=== PATIENT | male | born 1955 | race Hispanic/Latino ===

== ENCOUNTER 2016-09-28 22:59 | Inpatient (IN) ==
--- NOTE | 2016-09-28 23:21 | PROVIDER DOCUMENTATION ---
HPI-Neurological Disorder - General Chief Complaint: Stroke-Like Symptoms Stated Complaint: HEADACHE/ HX CVA Time Seen by Provider: 09/28/16 23:11 Source: patient Allergies/Adverse Reactions: Patient Allergies Allergy/AdvReac Type Severity Reaction Status Date / Time No Known Allergies Allergy Verified 09/29/16 00:09 Home Medications: Home Medication List Medication Instructions Recorded Confirmed Last Taken Type Metformin [Glucophage] 2 tab PO BID 09/29/16 09/29/16 09/29/16 History - History of Present Illness-Neuro Nature of Presenting Problem: Pt is a 60 y/o M c chief complaint of L sided facial droop and tingling sensation to R face x 12 hrs. Pt states symptoms started this morning at approximately 11am and he went to work at the [employer]. 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 Pt denies any pain or loss of sensation /motor to extremities. Pt's family came with him to the ER and stated 2 years ago he had a massive stroke and was admitted to the hospital in [place] for 8 days. Pt underwent rehab for months. Pt's daughter states that last week he had R facial droop but it resolved. Today he had slurred speech and difficulty chewing his food this morning. On arrival, pt is in minimal distress, alert, oriented. He is a poor historian. Review of Systems - Adult - REVIEW OF SYSTEMS - ADULT Constitutional: reports: no symptoms reported. denies: chills, fatique Eyes: reports: no symptoms reported. denies: blurred vision, double vision Ears, Nose, Mouth & Throat: reports: no symptoms reported. denies: ear pain, nose pain, throat pain Cardiovascular: reports: no symptoms reported. denies: chest pain, orthopnea Respiratory: reports: no symptoms reported. denies: cough, shortness of breath Gastrointestinal: reports: no symptoms reported. denies: abdominal pain, nausea Genitourinary: reports: no symptoms reported. denies: dysuria, hematuria Musculoskeletal: reports: no symptoms reported. denies: joint pain, joint swelling Integumentary: reports: no symptoms reported. denies: itching, rash Neurological: reports: slurred speech, other (facial droop). denies: numbness, paresthesia Psychiatric: reports: no symptoms reported. denies: anxiety, emotional problems Endocrine: reports: no symptoms reported. denies: cold intolerance, heat intolerance Hematologic/Lymphatic: reports: no symptoms reported. denies: blood clots, low blood count Allergic/Immunologic: reports: no symptoms reported. denies: allergic reactions , food allergy All Other Systems: Reviewed and Negative Past History - Adult - PAST MEDICAL HISTORY-ADULT Review of Records: reports: Old Records Reviewed, Nursing Assessment Review, Medications Reviewed, Social history reviewed & non-contributory. Major Childhood Illnesses: reports: denies history Cardiovascular: reports: HTN, hyperlipidemia Respiratory: reports: denies history Gastrointestinal: reports: denies history Obstetrical/Gynecological: reports: denies history Genitourinary: reports: denies history Musculoskeletal: reports: denies history Neurological: reports: CVA, stroke deficits, TIA Endocrine/Immune: reports: denies history Other Conditions: reports: denies history - PRIOR SURGERIES/PROCEDURES Surgical/Procedure History: reports: none - IMMUNIZATION STATUS Childhood Immunizations: See Nurse Assessment Flu Vaccine: See Nurse Assessment - FAMILY HISTORY Family History: reviewed, not pertinent - SOCIAL HISTORY Smoking: denies Substance Use: none/never Alcohol Use Frequency: never Living Situation: family Physical Exam- Neurological - Physical Exam-Neuro Initial Vital Signs Reviewed: Yes General Appearance: appears well, alert, no apparent distress Eye Exam: bilateral eye: normal inspection, PERRL, EOMI HENMT: normocephalic/atraumatic, moist mucous membranes, normal ENT inspection Head Injury: no evidence of injury Neck: non-tender, full range of motion, supple Respiratory: chest non-tender, lungs clear, normal breath sounds Cardiovascular: normal peripheral pulses, regular rate, rhythm, no edema Abdominal Exam: normal bowel sounds, non tender, soft Extremity: normal range of motion, non-tender, normal gait air boatswain Exam: normal hearing, PERRL, abnormal speech (mildly slurred), facial asymmetry (L sided), facial droop (L sided) Motor/Sensory: no motor deficit, no sensory deficit, no pronator drift Neurologic: air boatswain II-XII nml as tested, no motor/sensory deficits Integumentary: normal color, normal turgor, warm/dry Psych/Mental Status: normal mood/affect - Glascow Coma Scale Best Eye Response: (4) open spontaneously Best Verbal Response: (5) oriented Best Motor Response: (6) obeys commands Progress - PLAN OF CARE/RESULTS Progress/Plan/Lab Results: Vital Signs - 8 hr 09/28/16 23:20 09/29/16 01:58 Temperature 97.9 F Pulse Rate 65 71 Respiratory Rate 18 12 Blood Pressure 180/87 152/96 O2 Sat by Pulse Oximetry 100 99 Laboratory Results - last 24 hr 09/28/16 09/28/16 09/28/16 01:02 23:11 23:46 WBC RBC Hgb Hct MCV MCH MCHC RDW Std Deviation Plt Count MPV Immature Gran % (Auto) Neut % (Auto) Lymph % (Auto) [place] % (Auto) Eos % (Auto) Baso % (Auto) Immature Gran # (Auto) Neut # (Auto) Lymph # (Auto) [place] # (Auto) Eos # (Auto) Baso # (Auto) PT INR PTT (Actin FS) Specimen Type ARTERIAL Sample Site R RADIAL pH 7.46 H pCO2 34 L pO2 95 HCO3 25.5 Base Excess 0.8 Oxyhemoglobin 96.8 ABG O2 Sat (Calculated) 17.5 ABG O2 Saturation 100.7 H ABG Carboxyhemoglobin 2.50 ABG Methemoglobin 1.5 Mac Test YES A-a O2 Difference 12.0 Total Hemoglobin 12.8 Lactate 1.50 Blood Gas Modality ROOM AIR FiO2 % 21.0 Sodium Potassium Chloride Carbon Dioxide Anion Gap BUN Creatinine Estimated GFR/1.73 m2 BUN/Creatinine Ratio Glucose Calculated Osmolality Calcium Total Bilirubin AST ALT Alkaline Phosphatase Creatine Kinase Troponin T Total Protein Albumin Globulin Albumin/Globulin Ratio Plasma Lactate 0.9 Urine Source Urine Color Urine Turbidity Urine pH Ur Specific [place] Urine Protein Ur Glucose (Stick) Ur Ketones (Stick) Urine Blood Urine Nitrite Urine Bilirubin Urobilinogen Dipstick Urine Leukocytes Urine WBC (Auto) Urine RBC (Auto) U Epithel Cells (Auto) Urine Bacteria (Auto) Plasma/Serum Ethyl Alc 09/28/16 09/28/16 09/28/16 23:46 23:46 23:46 WBC 5.49 RBC 4.35 L Hgb 13.5 L Hct 37.8 L MCV 86.9 MCH 31.0 MCHC 35.7 RDW Std Deviation 11.7 Plt Count 178 MPV 10.1 Immature Gran % (Auto) 0.4 Neut % (Auto) 50.6 Lymph % (Auto) 24.8 [place] % (Auto) 8.6 Eos % (Auto) 14.9 H Baso % (Auto) 0.7 Immature Gran # (Auto) 0.02 Neut # (Auto) 2.78 Lymph # (Auto) 1.36 [place] # (Auto) 0.47 Eos # (Auto) 0.82 H Baso # (Auto) 0.04 PT 11.1 INR 1.05 PTT (Actin FS) 25.9 Specimen Type Sample Site pH pCO2 pO2 HCO3 Base Excess Oxyhemoglobin ABG O2 Sat (Calculated) ABG O2 Saturation ABG Carboxyhemoglobin ABG Methemoglobin Mac Test A-a O2 Difference Total Hemoglobin Lactate Blood Gas Modality FiO2 % Sodium 138 Potassium 3.6 Chloride 101 Carbon Dioxide 23 L Anion Gap 14 BUN 16 Creatinine 1.0 Estimated GFR/1.73 m2 > 60 BUN/Creatinine Ratio 16 Glucose 171 H Calculated Osmolality 281 Calcium 8.7 L Total Bilirubin 0.22 AST 14 ALT 13 Alkaline Phosphatase 70 Creatine Kinase 105 Troponin T Total Protein 6.7 Albumin 3.7 Globulin 3.0 Albumin/Globulin Ratio 1.2 Plasma Lactate Urine Source Urine Color Urine Turbidity Urine pH Ur Specific [place] Urine Protein Ur Glucose (Stick) Ur Ketones (Stick) Urine Blood Urine Nitrite Urine Bilirubin Urobilinogen Dipstick Urine Leukocytes Urine WBC (Auto) Urine RBC (Auto) U Epithel Cells (Auto) Urine Bacteria (Auto) Plasma/Serum Ethyl Alc 09/28/16 09/29/16 23:46 00:08 WBC RBC Hgb Hct MCV MCH MCHC RDW Std Deviation Plt Count MPV Immature Gran % (Auto) Neut % (Auto) Lymph % (Auto) [place] % (Auto) Eos % (Auto) Baso % (Auto) Immature Gran # (Auto) Neut # (Auto) Lymph # (Auto) [place] # (Auto) Eos # (Auto) Baso # (Auto) PT INR PTT (Actin FS) Specimen Type Sample Site pH pCO2 pO2 HCO3 Base Excess Oxyhemoglobin ABG O2 Sat (Calculated) ABG O2 Saturation ABG Carboxyhemoglobin ABG Methemoglobin Mac Test A-a O2 Difference Total Hemoglobin Lactate Blood Gas Modality FiO2 % Sodium Potassium Chloride Carbon Dioxide Anion Gap BUN Creatinine Estimated GFR/1.73 m2 BUN/Creatinine Ratio Glucose Calculated Osmolality Calcium Total Bilirubin AST ALT Alkaline Phosphatase Creatine Kinase Troponin T < 0.010 Total Protein Albumin Globulin Albumin/Globulin Ratio Plasma Lactate Urine Source CLEAN CATCH Urine Color STRAW Urine Turbidity CLEAR Urine pH 5.5 Ur Specific [place] 1.006 Urine Protein NEGATIVE Ur Glucose (Stick) 200 A Ur Ketones (Stick) NEGATIVE Urine Blood NEGATIVE Urine Nitrite NEGATIVE Urine Bilirubin NEGATIVE Urobilinogen Dipstick NORMAL Urine Leukocytes NEGATIVE Urine WBC (Auto) <10 Urine RBC (Auto) <10 U Epithel Cells (Auto) <10 Urine Bacteria (Auto) NEGATIVE Plasma/Serum Ethyl Alc Orders Category Date Time Status Cardiac Monitoring DIRECTED Care 09/28/16 23:11 Active Finger Stick Blood Sugar (ED) DIRECTED Care 09/28/16 23:11 Active Oxygen Therapy- ED Nursing DIRECTED Care 09/28/16 23:11 Active Saline Loc NOW Care 09/28/16 23:11 Active CHEST-PORTABLE [RAD] Stat Exams 09/28/16 23:11 Taken HEAD W/O CONTRAST [CT] Stat Exams 09/28/16 23:12 Taken ABG [RESP] Routine Lab 09/28/16 23:11 Completed ALCOHOL BLOOD Stat Lab 09/28/16 23:46 Completed CBC WITH ELECTRONIC DIFF [HEME] Stat Lab 09/28/16 23:46 Completed CK PROFILE [SP CHEM] Stat Lab 09/28/16 23:46 Completed COMPREHENSIVE METABOLIC PANEL [CHEM] Stat Lab 09/28/16 23:46 Completed LACTATE, PLASMA [CHEM] Stat Lab 09/28/16 01:02 Completed PROTIME WITH INR [COAG] Stat Lab 09/28/16 23:46 Completed PTT [COAG] Stat Lab 09/28/16 23:46 Completed TROPONIN T Stat Lab 09/28/16 23:46 Completed URINALYSIS W/POSS RFLX CULT-1 [URINALYSIS] Stat Lab 09/29/16 00:08 Completed URINE DRUG SCREEN Stat Lab 09/29/16 00:08 Received 0.9% Sodium Chloride Inj [Ns] 1,000 ml Med 09/29/16 00:36 Discontinued .ROUTE As Directed Aspirin Med 09/29/16 00:17 Discontinued 325 mg PO NOW ONE Pulse Oximetry Stat Oth 09/28/16 23:11 Active EKG [EKG] Stat Ther 09/28/16 23:11 Ordered Result Diagrams: 09/28/16 23:46 09/28/16 23:46 - XRAY 1 XRAY Study: Chest Impression: Normal XRAY Interpretation: nad - CT/MRI 1 CT Study: Head Impression: Normal (No acute hemorrhage or definite acute infarct - radiology) - CONSULTS/PCP/HOSPITALIST Notification #1 *Consult/PCP/Hospitalist*: Dr. Bucio (Hospitalist) Time Discussed: 02:18 Reason/Comments: Will see pt in the ER and admit to the hospital. Departure - Departure Time of Disposition Decision: 02:19 DIAGNOSIS: Stroke-like symptoms Disposition: ADMITTED INPATIENT 09 Certified Medical Emergency: Emergent Condition: Stable Referrals and Follow-Ups: Emil Holly MD [Primary Care Provider] - Attestation - Physician/ [place] Attestation Patient care was provided by Advanced Practice Provider:: Yes Advanced Practice Provider:: Alan Rubio Advanced Practice Provider documentation review:: The Mid-level provider documentation, treatment plan and medical decision making was reviewed by the physician who agrees with all treatment and medical decision making by the MLP. The physician spent face to face time with patient:: Yes Advanced Practice Provider documentation review:: The physician spent face to face time with this patient and agrees with all MLP documentation, treatment, and medical decision making by the MLP. See provider notes for further information. - NIH Stroke Scale NIH Type: Initial Evaluation Level of Consciousness: 0-Alert LOC Questions (ask month and age): 0-Answers Both Correctly LOC Commands (ask to open & close eyes;make a fist, let go): 0-Obeys Both Correctly Best Gaze (horizontal eye movement): 0-Normal Visual (use finger movement, counting or visual threat): 0-No Visual Loss Facial Palsy (show teeth or raise eyebrows & close eyes tght: 1-Minor Paralysis Motor Function-left arm: 0-Normal Motor Function-right arm: 0-Normal Motor Function-left le-Normal Motor Function-right le-Normal Limb Ataxia([id number], or heel to donnelly): 0-No Ataxia Sensory(pin prick to face,arms,trunk,legs-compare side/side): 1-Mild to Moderate Decrease in Sensation Best Language(name item/read sentence.Ex-Down to Earth): 0-No Aphasia Dysarthria(Pt read words or say words Ex.Mama,Tip-Top,Thanks: 0-Normal Articulation Extinction and Inattention: 0-Normal Modified [place] Score Criteria: 0-no symptoms Stroke tPA Guidelines - Inclusion Criteria for IV tPA Onset <3 hours ago *OR* 3-4.5 hours ago: No
[2016-09-28 23:39] LABS: ALLEN TEST YES; BE 0.8 mmoll (-3.0-3.0); BLOOD TYPE ARTERIAL; DRAW SITE R RADIAL; METHB 1.5 % (0.0-1.5); O2(CT) 17.5 mL/dL (15.0-23.0); PCO2(98.6) 34 mmHg (35-45); PO2(98.6) 95 mmHg (60-100); SAMPLE BLOOD; SAO2 100.7 % (95.0-100.0); THB 12.8 g/dL (11.5-17.4); pH(98.6) 7.46 (7.35-7.45)
[2016-09-28 23:41] LABS: MODALITY ROOM AIR
[2016-09-28 23:57] LABS: MANUAL DIFF NEEDED? NO
[2016-09-29] MEDS ORDERED: ASPIRIN PO ONE (00:17)
[2016-09-29 00:32] LABS: BASO% 0.7 % (0.0-0.8); EOS# 0.82 X1000 (0.0-0.7); EOS% 14.9 % (0.0-10.0); HEMATOCRIT 37.8 % (42.0-52.0); HEMOGLOBIN 13.5 g/dL (14.0-18.0); IMM GRAN# 0.02 X1000 (0.0-0.04); IMM GRAN% 0.4 % (0.0-0.5); LYMPH# 1.36 X1000 (1.2-3.4); LYMPH% 24.8 % (20.5-51.1); MCHC 35.7 g/dL (33-37); MCV 86.9 FL (81-99); MONO# 0.47 X1000 (0.11-0.59); MONO% 8.6 % (1.7-9.3); MPV 10.1 FL (7.4-10.4); NEUT% 50.6 % (42.2-75.2); PLT 178 X1000 (130-400); RBC 4.35 XMIL (4.7-6.1)
[2016-09-29 00:33] LABS: URINE CULTURE NEEDED? NO; URINE MICRO REVIEW NEEDED? NO; URINE SOURCE CLEAN CATCH
[2016-09-29] MEDS ORDERED: NS 2,000 ML ONE (00:36)
[2016-09-29 00:42] LABS: INR 1.05; PROTIME 11.1 Seconds (9.2-11.7); PTT 25.9 Seconds (22.0-36.0)
[2016-09-29 00:44] LABS: AGAP 14; ALBUMIN 3.7 g/dL (3.5-5.0); ALKALINE PHOSPHATASE 70 U/L (32-122); BUN 16 mg/dL (8-22); CALCIUM 8.7 mg/dL (8.8-10.2); CHLORIDE 101 mmol/L (98-107); CK PROFILE 105 U/L (24-204); COSMO 281; GOT 14 U/L (10-34); GPT 13 U/L (10-44); POTASSIUM 3.6 mmol/L (3.5-5.1); SODIUM 138 mmol/L (136-145); TCO2 23 mmol/L (25-35); TOTAL BILIRUBIN 0.22 mg/dL (0.20-1.00); TOTAL PROTEIN 6.7 g/dL (6.3-8.3)
[2016-09-29 00:50] LABS: BILIRUBIN URINE NEGATIVE (NEGATIVE); BLOOD URINE NEGATIVE (NEGATIVE); COLOR STRAW; GLUCOSE URINE 200 mg/dL (NEGATIVE); LEUKOCYTES URINE NEGATIVE (NEGATIVE); NITRITE URINE NEGATIVE (NEGATIVE); PH URINE 5.5; PROTEIN URINE NEGATIVE (NEGATIVE); SP GRAVITY URINE 1.006; TURBIDITY URINE CLEAR (CLEAR); UR EPITHELIAL CELLS <10 /HPF (<10); URINE BACTERIA NEGATIVE /HPF; URINE RBC <10 /HPF (<10); URINE WBC <10 /HPF (<10); UROBILINOGEN URINE NORMAL (NORMAL)
[2016-09-29 02:27] LABS: UR AMPHETAMINES QUAL NONE DETECTED (NONE DETECT); UR BARBITUATES QUAL NONE DETECTED (NONE DETECT); UR BENZODIAZEPIN QUAL NONE DETECTED (NONE DETECT); UR CANNABINOIDS QUAL NONE DETECTED (NONE DETECT); UR COCAINE QUAL NONE DETECTED (NONE DETECT); UR METHADONE QUAL NONE DETECTED (NONE DETECT); UR OPIATES QUAL NONE DETECTED (NONE DETECT); UR OXYCODONE QUAL NONE DETECTED (NONE DETECT); UR PCP QUAL NONE DETECTED (NONE DETECT)
[2016-09-29] MEDS ORDERED: LIPITOR PO ONE (02:50)
[2016-09-29] MEDS ORDERED: ZOFRAN IV PRN (02:50)
[2016-09-29] MEDS ORDERED: TYLENOL PO PRN (02:50)
[2016-09-29 03:14] LABS: HEMOGLOBIN A1C 7.5 % (4.8-6.0)
[2016-09-29] MEDS: LIPITOR PO SCH ×2 (03:16→20:38)
[2016-09-29] MEDS: LOVENOX SUBQ SCH (03:16)
[2016-09-29] MEDS: NS 1,000 ML IV SCH ×2 (03:16→14:07)
--- NOTE | 2016-09-29 03:20 | HISTORY AND PHYSICAL ---
REASON FOR ADMISSION: Left-sided facial droop today. PRIMARY CARE PHYSICIAN: Dr. Emil Holly. HISTORY OF PRESENT ILLNESS: Mr. Quoc Hardin is a 58-year-old male with a past medical history of type 2 diabetes and hyperlipidemia. He has a prior history of a CVA in 1-2 years ago in [place] where [place] from. He had to undergo extended PT, OT, and speech therapy to recover to a functional level. The patient reports that the day before yesterday, he had a headache in the back of his head. His noticed that he felt so spaced out and was confused for several minutes. Thereafter, he came back to himself. Yesterday at about 11 a.m., the patient reports that he had right eye twitching and could not see very clearly out of his right eye. After several minutes, he felt better and went to work. At about 10 p.m., almost 12 hours later, his colleagues noticed the left side of his face was drooping and his eyes were sagging. They were concerned and told him to come to the ER. On arrival, he underwent a CT scan without contrast. No acute pathology was noted. The patient himself denies any focal weakness, numbness, tingling of his extremities. No visual problems as of this time. His colleagues at work did tell him that his speech was slurred but he does not think so. His is at bedside. She thinks it is slightly slurred. The patient denies any palpitations, chest pain, or any cardiorespiratory symptoms throughout today. No GI or complaints. No polyuria, polydipsia, or polyphagia. No skin or musculoskeletal complaints. No change in his home medications. REVIEW OF SYSTEMS: Twelve system review was done. No positive findings were noted except for what is noted above. The patient denies any antecedent history of loss of consciousness prior to today. MEDICATIONS: Metformin 500 mg b.i.d. FAMILY HISTORY: He states that other than diabetes, no heart disease or strokes. ALLERGIES: No known allergies. PERSONAL SOCIAL HISTORY: Maybe 2 beers over the weekend. No smoking history. He is . PAST SURGICAL HISTORY: Nil. LABORATORY WORK: White count 5000, hemoglobin and hematocrit 13 and 37, platelets 178,000. Glucose 171. Troponin is negative. Lactate normal. EKG yet to be reviewed by me. PT and PTT are normal. UDS is negative. Alcohol level is normal. Urinalysis clean. Blood gas 7.46, pCO2 34, O2 95 on room air. Chest x-ray was clear. PHYSICAL EXAMINATION: VITAL SIGNS: Blood pressure 152/96, heart rate 71, respirations 12, temperature is 97.9, and 99% on room air. GENERAL: He is a pleasant, middle-aged, Serbian man who is alert and oriented to person, place, and time. HEENT: Head is normocephalic, atraumatic. Cranial nerves: The patient has left lower motor neuron cranial nerve palsy. He also showed some very subtle weakness of the right rectus muscle. Pupils are reactive to light. Anicteric and not pale. Otherwise, the rest of his cranial nerve exam is normal. No pronator drift. Power is 5/5 in the lower extremities. No tremors. No evidence of truncal ataxia or extremity ataxia. Neck supple. No JVD or carotid bruit. No thyromegaly. ENT and oropharynx exam is grossly normal. No central cyanosis. CHEST: Clear to auscultation. Good air entry in both lung soriano. CARDIOVASCULAR: First and second heart sounds heard. No gallops, rubs. Rhythm is regular. ABDOMEN: Slightly protuberant, soft, nontender. No mass or organomegaly. Bowel sounds normal. RECTAL: Examination deferred at this time. EXTREMITIES: No edema, clubbing, or peripheral cyanosis. Pulses distally intact with good volume and symmetrical. NEUROLOGICAL EXAMINATION: See above. SKIN: Intact with no breakdown, lesions, or erythema. Physical examination is grossly normal. ASSESSMENT: 1. Probable brainstem lacunar stroke. 2. Type 2 diabetes. 3. Hyperlipidemia. 4. Hypertension. PLAN: Consult neurology to see the patient later today in the a.m. MRI without contrast will be ordered. Echocardiogram and carotid Dopplers will also be ordered. Continue with aspirin. Start on high-dose statin. Check the patient's A1c, lipid panel, and adjust home medications accordingly. Because of the patient's habitus, it will be prudent to at least offer him a sleep study to see if this is a possible risk factor for his stroke. Neurologic checks will be checked every 4 hours. DVT prophylaxis with Lovenox. IV fluids will be continued over the course of the day to maintain blood pressure so as to decrease the risk of extension of patient's penumbra if his blood pressure should drop. cc: Dewayne Bucio MD
--- NOTE | 2016-09-29 08:23 | Diag Imaging Result Document ---
PROCEDURE NAME: HEAD W/O CONTRAST - 09/28/2016 CT OF THE HEAD WITHOUT CONTRAST: FINDINGS: There are patchy periventricular white matter lucencies bilaterally. The visualized paranasal sinuses are clear. The calvarium is intact. IMPRESSION: Mild chronic microvascular white matter change. No evidence of acute disease.
--- NOTE | 2016-09-29 08:25 | Diag Imaging Result Document ---
PROCEDURE NAME: CHEST-PORTABLE - 09/28/2016 SINGLE FRONTAL RADIOGRAPH OF THE CHEST: COMPARISON: None available. FINDINGS: The lungs are grossly clear. There is no discrete pleural fluid collection or evidence of pneumothorax. The cardiomediastinal silhouette and upper airway are grossly unremarkable. IMPRESSION: No evidence of acute chest pathology.
[2016-09-29] MEDS: ASPIRIN PO SCH (12:47)
[2016-09-29] MEDS: GLUCOPHAGE PO SCH ×2 (12:48→20:38)
--- NOTE | 2016-09-29 14:01 | Diag Imaging Result Document ---
PROCEDURE NAME: MRI BRAIN W/O CONTRAST - 09/29/2016 MRI BRAIN WITHOUT: FINDINGS: Axial, sagittal, and coronal images obtained in multiple sequences. No recent infarct. There are scattered areas of increased signal on the T2 FLAIR weighted and fast spin echo T2 images. There are in the deep white matter primarily in the parietal lobes. No distinct mass or midline shift. No epidural or subdural fluid collection. No hydrocephalus. No sinus opacification. IMPRESSION: 1. No recent infarct. 2. Multiple small areas of increased signal in the deep white matter which are nonspecific but may simply represent moderate to prominent microvascular ischemic changes. [facility]
--- NOTE | 2016-09-29 15:00 | CONSULTATION ---
DATE OF CONSULTATION: 09/29/2016 Mr. Hardin reports being told by coworkers yesterday that he had a crooked face. He reports he was not personally aware of that. He did eventually look in the mirror and noticed left side of his face was drooped. He believes someone at work told him speech was slurred but he did not personally notice slurred speech. There was never significant headache, but he does note mild left periauricular discomfort today. There was no altered awareness, altered consciousness, memory gap. He did not have any gait difficulty. He did not notice focal weakness in the limbs. He has past history of diabetes mellitus and he was taking metformin regularly. He reports he has not had high blood pressure or other medical problems. He reports being told that he had "stroke" a few years ago and he is not certain what deficit or symptoms were present with that. He recalls having some sharp left-sided chest pain around that time. He might have had a little bit of headache around that time. He specifically denies facial asymmetry and a focal neurologic deficit associated with that previous event. History in the chart indicates he had physical therapy, occupational therapy, speech therapy after that event and he recovered. That makes me suspicious that this might have in fact been true cerebral infarction but Mr. Hardin provides history today that there was no focal neurologic deficit. Workup here includes noncontrast CT of the head reported unremarkable. He has had mildly elevated blood sugars. Nothing else remarkable on lab. Systolic blood pressures ranged 130s to 180s. Heart rate has ranged 60s to 70s. He has been afebrile. PHYSICAL EXAMINATION: On exam now, he is awake, alert, attentive and appropriate. Speech is not dysarthric. Language function is intact. Memory is good. Head and neck are unremarkable. Visual soriano are full, tested grossly by confrontational finger counting. Extraocular movements are full. Facial sensation is intact to pinprick and light touch testing. He has a lower motor neuron pattern of left-sided facial weakness. Left eye closes completely with squinting but not without vigorous squinting. Gag is intact. Palate is midline. Tongue is midline. Shoulder shrug is good bilaterally. Strength is normal in the arms and legs. He did well on finger-to- nose testing bilaterally. He reports equal pinprick appreciation over the hands and feet. I did not test his gait. 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 He has risk factors for cerebrovascular ischemic problems. I am not certain about the possible previous stroke history. Negative CT is reassuring. He has carotid ultrasound, echocardiogram, brain MRA ordered. In light of his risk factors, I think it would be reasonable to also do brain MRI for completeness. We might recommend he continue daily aspirin which he was not taking before. He might need some attention to blood pressure. Further plans will depend on imaging results and on his clinical course. Thanks for asking me to see Mr. Hardin. cc: MD AYANNA Rob III
--- NOTE | 2016-09-29 15:52 | PROGRESS NOTE ---
DATE: 09/29/2016 This 58-year-old presented with left-sided facial droop. A 58-year-old male. PAST MEDICAL HISTORY: Diabetes mellitus type 2, hyperlipidemia, prior history of CVA 1-2 years ago in [place] where he is from. He did go undergo extended PT and OT and speech therapy and recovered functional level. The patient reports that the day before he came in, the day before yesterday he had a headache in the back of his head. noticed he felt so space out, he was confused for several minutes. Thereafter he came back to himself. Yesterday about 11 a.m. he reports that his right eye started twitching. Could not see very clearly out of the right eye. After several minutes he felt better and went to work. About 10 p.m., almost 12 hours later his colleagues noticed the left side of his face was drooping, eyes were sagging and they were concerned. They told him to come to the emergency room. On arrival, he got a CT with contrast. No acute pathology was noted. The patient himself denies any focal weakness, numbness, tingling in the extremities. No visual problems at the time. His colleagues at work could tell that his speech was slurred but he did not think so. His was at the bedside. She thinks it was slurred. The patient denies any palpitations, chest pain, or cardiorespiratory symptoms throughout the day. No GI or complaints. He is on metformin. At the present time they said that he felt like his right face was a little droop and there was slurred speech and his right eye was twitching. No trouble in his arms or legs and he had a little trouble with his vision in his right eye yesterday. Now that is better now. Now his left side of his face is drooping and his left periocular muscles are weak. He is afebrile. Temp is , pulse 18, respirations 134/79. Pupils are equal, round, reactive to light, and accommodation. Oral and nasal mucosa unremarkable. Conjunctivae pink. Sclerae clear.Lungs: Clear in all lung soriano. Cardiovascular: Regular rhythm and rate without murmur or S3. Abdomen: Soft. Skin: Is warm and dry. He has left facial drooping. He has a left periocular weakness as well as having a hard time closing his left eye. 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 Concerned that it was right side before. His CT of his head done yesterday was unremarkable. He has apparently had a CVA before. I think that it would benefit us to get an MRI and I think that has been ordered. Await on the results and I will discuss with Dr. Rucker. At present time he is on aspirin. He is on metformin 1000 mg b.i.d. He is getting normal saline at 150 mL an hour and blood pressures look appropriate. cc: Mac Del Cid MD
[2016-09-29] MEDS: PREDNISONE PO SCH (21:35)
--- NOTE | 2016-09-29 21:36 | Carotid Study ---
DATE: 09/29/2016 PROCEDURE: Bilateral duplex and color flow imaging of the carotid arteries was performed using the GE Vivid E9 ultrasound system with a 9LD transducer. REFERRING PHYSICIAN: Dewayne Bucio MD INTERPRETING PHYSICIAN: DUNCAN: Lois. INDICATIONS: CVA with left facial droop, headache, and altered mental status. OBSERVED DATA RIGHT LEFT Brachial Blood Pressure Carotid Pulse Bruits: Carotid/Sub DIAGRAM OF ULTRASOUND IMAGING R L RIGHT INT EXT INT EXT LEFT Shekhar (cm/s) Shekhar (cm/s) Subclavian 83/0 Subclavian 144/0 CCA Proximal 73/10 CCA Proximal 91/10 CCA Distal 60/12 CCA Distal 74/15 Bulb 49/16 Bulb 52/13 ICA Proximal 43/12 ICA Proximal 44/9 ICA Mid 60/18 ICA Mid 73/17 ICA Distal 103/34 ICA Distal 69/22 ECA 70/7 ECA 74/5 Vertebral 56/15, antegrade flow Vertebral 58/13, antegrade flow ICA/CCA Ratio 1.41 ICA/CCA Ratio 0.79 % Stenosis 0-39%, most likely closely to 39% % Stenosis 0-39% FINDINGS: Some atherosclerosis noted to bilateral carotid arteries. The right internal carotid artery is very tortuous which may limit the interpretive validity of this study at this time by strict velocity criteria. There is no hemodynamically significant flow-limiting stenosis on the right side. The patient is approaching moderate stenosis but currently is at 0-39%, although closer to the 39% range. The patient's left side is 0-39%. Both vertebral arteries are antegrade flow. PHYSICIAN INTERPRETATION: By strict velocity criteria, no hemodynamically significant flow- limiting stenosis noted to bilateral carotid arteries. The right side is 0-39%, likely closer to the 39% range. The left is 0-39%. Both vertebral arteries are antegrade flow. cc: MD Dewayne Mcintosh MD
--- NOTE | 2016-09-29 21:52 | ECHO REPORT ---
ORDER DATE: 09/29/2016 MEASUREMENTS: Left ventricular end-diastolic diameter 5.7, systolic diameter 3.4. Posterior wall thickness 0.9, septal thickness 1.0, left atrium 3.5, aortic root 3.6. SUMMARY: 1. Adequate quality of study. 2. Aortic, mitral, tricuspid, and pulmonic valves are without structural abnormality, with trace mitral regurgitation and trace tricuspid regurgitation. Estimated systolic PA pressure by Doppler is 35 mmHg. The aortic root is normal in size. 3. Normal left ventricular dimensions demonstrated. Estimated left ventricular ejection fraction 65%. No regional wall motion abnormalities are evident. Left atrium, right atrium, and right ventricle are normal in size, with normal right ventricular systolic function. 4. No pericardial effusion. 5. Appearance of inferior vena cava suggests normal central venous pressure. CONCLUSIONS: 1. No significant valve abnormalities. 2. Estimated systolic PA pressure by Doppler 30-35 mmHg. 3. Estimated left ventricular ejection fraction 65%. cc: MD Dewayne Riggins MD
[2016-09-30] MEDS: LOVENOX SUBQ SCH (02:52)
[2016-09-30 06:36] LABS: MANUAL DIFF NEEDED? NO
[2016-09-30 06:51] LABS: BASO% 0.3 % (0.0-0.8); EOS# 0.05 X1000 (0.0-0.7); EOS% 0.8 % (0.0-10.0); HEMATOCRIT 38.4 % (42.0-52.0); HEMOGLOBIN 13.5 g/dL (14.0-18.0); LYMPH# 0.96 X1000 (1.2-3.4); LYMPH% 14.8 % (20.5-51.1); MCH 30.7 PG (27-31); MCHC 35.2 g/dL (33-37); MCV 87.3 FL (81-99); MONO# 0.25 X1000 (0.11-0.59); MONO% 3.9 % (1.7-9.3); MPV 10.5 FL (7.4-10.4); NEUT% 80.2 % (42.2-75.2); PLT 184 X1000 (130-400)
[2016-09-30 07:15] LABS: AGAP 15; BUN 14 mg/dL (8-22); CALCIUM 9.1 mg/dL (8.8-10.2); CHLORIDE 102 mmol/L (98-107); COSMO 290; POTASSIUM 4.6 mmol/L (3.5-5.1); SODIUM 141 mmol/L (136-145); TCO2 24 mmol/L (25-35)
[2016-09-30 09:08] VITALS: BP 131/54
[2016-09-30] MEDS: GLUCOPHAGE PO SCH (09:13)
[2016-09-30] MEDS: ASPIRIN PO SCH (09:13)
[2016-09-30] MEDS: PREDNISONE PO SCH (09:13)
--- NOTE | 2016-09-30 11:03 | PROGRESS NOTE ---
DATE: 09/30/2016 Mr. Hardin is awake, alert, attentive. He has left lower motor neuron facial palsy. On exam, there is certainly no improvement, and I wonder if the left lower facial droop is a little bit more prominent today. There is no other neurologic finding on limited bedside exam. LABS AND X-RAYS: The MRI was unremarkable. This is consistent with Boothe's palsy. PLAN: I would treat him with antiviral medicine and continue prednisone short- term, following blood sugars closely. I do not have any other suggestion now from a neurologic standpoint. Thanks for asking me to see Mr. Hardin. cc: Cem Rucker III, MD [facility]
--- NOTE | 2016-09-30 11:27 | Diag Imaging Result Document ---
PROCEDURE NAME: MRA BRAIN W/O CONTRAST - 09/30/2016 MRA BRAIN WITHOUT CONTRAST: COMPARISON: No prior MRA brain is available for comparison. FINDINGS: There is an incidental origin of the right [employer]. Otherwise, there is no evidence of flow-limiting stenosis, vascular malformation, or aneurysm involving the arteries comprising the [place], including the anterior, middle, and posterior circulations. The distal internal carotid arteries and the distal vertebral arteries are unremarkable. The basilar artery is patent. IMPRESSION: No evidence of flow-limiting stenosis.
[2016-09-30] MEDS ORDERED: ZOVIRAX PO SCH (13:00)
--- NOTE | 2016-09-30 13:19 | DISCHARGE SUMMARY ---
ADMISSION DATE: 09/28/2016 DISCHARGE DATE: 09/30/2016 HISTORY: He came with left-sided facial droop. He is a patient of Dr. Alexx Holly. Mr. Hardin is 60 years old. PAST MEDICAL HISTORY: Type 2 diabetes mellitus, hyperlipidemia, prior history of CVA 1-2 years ago in [place] where he is from, and he had to undergo PT and OT and speech therapy to recover functional level. The patient reports that, the day before admission, he had a headache in the back of his head. His noticed that he had felt so spaced out and was confused for several minutes. Therefore, he came back to himself yesterday about 11:00 a.m. The patient reports that he had right eye twitching and could not see very clear out of his right eye. After several minutes, he felt better and went to work. At about 10:00 p.m., almost 12 hours later, his colleagues noticed the left side of his face was drooping and his left eye was sagging little eyelid. They were concerned and told the patient to come to the emergency room. On arrival in the emergency room, he had a CT scan without contrast. No acute pathology was seen. The patient denies any focal weakness, numbness, or tingling in extremities. No visual problems at the time of examination. His colleagues at work told him his speech was a little slurred, and his felt like it might have been slightly slurred speech. The patient denied any palpitations or chest pain. No cardiorespiratory symptoms throughout the day. No GI or complaints. No polyuria, polydipsia, or polyphagia. No skin or musculoskeletal complaints. He was taking metformin 500 mg b.i.d. We admitted him. Dr. Rucker evaluated him and felt like he had lower motor facial palsy consistent with Boothe's palsy. We did an MRI of his brain, and it was negative. MRA of the brain, also, unremarkable. No recent infarct. Multiple small areas of increased signal in deep white matter which are nonspecific. They simply represent moderate prominent microvascular ischemic changes. MRA of the brain: No evidence of flow-limiting stenosis. The patient felt much better, and I did put him on some prednisone. I will put him on a tapering dose of prednisone. I also treated him with acyclovir, and I will give him 800 mg, I think 5 times a day for 7 days. I want him to find a primary care doctor. I think he has already seen Dr. Holly. I want him to follow up with Dr. Holly. We will plan on discharging him home. DISCHARGE MEDICATIONS: 1. Metformin 2 tablets b.i.d. for his sugar. 2. I think he should take an aspirin every day, 81 mg. 3. I put him on Zovirax 800 mg t.i.d. for 7 days. 4. We will give him a prednisone taper 20 mg twice a day for 5 days and then go down to 20 mg a day for 10 days and then 10 mg for 10 days and then stop. cc: Mac Del Cid MD
== END 2016-09-30 13:37 | disposition home or self-care (01) ==
LOC: ED 22:59 → SUATTDRO 23:00 → 3N 09-29 02:47
PROVIDERS: ATTEND Emergency Medicine